=== PATIENT | female | born 1990 | race Two or more races ===

== ENCOUNTER → 2017-08-15 | Emergency (ER) | payer OTHER ==
[~2017-08-15] VITALS: Ht 162.6 cm; Wt 81.6 kg
[~2017-08-15] MED LIST: AUGMENTIN 875-1 EAC1 ORAL; ZYRTEC-D TABLE1 EACH ORAL
[2017-08-15 13:55] VITALS: BP 131/80
--- NOTE | 2017-08-15 14:25 | Emergency Room Report ---
History of Present Illness General Chief Complaint: Earache Source: Patient Present Illness HPI Patient presents with a report of right ear pain for the past one month Patient reports that this morning she felt something moving She has had worsening headache And migraine secondary to this pain Denies any vomiting denies any neck pain or photophobia Denies any focal weakness Upon further discussion the patient reports that she has also seen an hearing care practitioner And was told that there was no problems Pain is 5/10 localized to the right ear Allergies: Coded Allergies: No Known Allergies (Unverified , 08/15/17) Patient History Past Medical History: see triage record Pertinent Family History: none Last Menstrual Period: Current Now: No Reviewed Nursing Documentation: PMH: Agreed, PSxH: Agreed Nursing Documentation-PMH Past Medical History: No Stated History Review of Systems All Other Systems: negative except mentioned in HPI Physical Exam Vital Signs Date Time Temp Pulse Resp B/P (MAP) Pulse Ox O2 Delivery O2 Flow Rate FiO2 08/15/17 13:55 98.6 77 16 131/80 98 Room Air Sp02 EP Interpretation: reviewed, normal General Appearance: well appearing, no apparent distress Head: normocephalic, atraumatic Eyes: bilateral eye PERRL, bilateral eye EOMI ENT: normal pharynx, other - To exam reveals a full tympanic membrane, there is a mild whitish marking on the edge, no obvious foreign body in the canal, no obvious perforation however the area does appear abnormal, Neck: supple, other - mastoid is soft Musculoskeletal: normal inspection Neurologic: normal inspection, alert, oriented x3 Skin: normal color, no rash Lymphatic: no adenopathy Medical Decision Making Diagnostic Impression: Primary Impression: Earache, right Additional Impression: Middle ear effusion ER Course Given the patient's exam I did discuss with her some differentials I do not think that there is any central process at this time Patient requested lavage of the ear At this time I did notify her that this causes severe nausea vomiting Has not been performed in the ER Patient was upset regarding this She is requesting to be let go if not markedly anything else I tried to reiterate to her the importance of her specialty followup Second opinion is extremely important as I feel that there is some abnormality Also involving possible effusion that is persisting Which the etiology is to be further evaluated Otherwise there are no further emergency room procedures are identified again patient continues not to be happy regarding my findings And is discharged in stable condition with recommendations of urgent ENT followup, Last Vital Signs Date Time Temp Pulse Resp B/P (MAP) Pulse Ox O2 Delivery O2 Flow Rate FiO2 08/15/17 13:55 98.6 77 16 131/80 98 Room Air Status: unchanged Disposition: HOME, SELF-CARE Condition: Stable Scripts Cetirizine Hcl/Pseudoephedrine (ZYRTEC-D TABLET) 1 Each Tab.er.12h 1 EACH ORAL DAILY, #12 TAB Prov: ALISA RAMIREZ D.O. 08/15/17 Amoxicillin/Potassium Clav 875-125* (AUGMENTIN 875-125 TABLET*) 1 Each Tablet 1 TAB ORAL TWICE A DAY, #14 TAB Prov: ALISA RAMIREZ D.O. 08/15/17 Departure Forms: Return to Work Return to Work in (Days): 1 Return to Work Date: Aug 16, 2017 Patient Instructions: Otitis Media With Effusion, Earache Additional Instructions: Please note that there is an abnormality identified in the right ear. You have mention that this has been ongoing for approximately one month. He have also mentioned that he has seen an hearing care practitioner. It is felt that an hearing care practitioner would be the appropriate referral for this. And possibly a second opinion is warranted if you're not happy with the first specialist recommendations or findings. ALISA RAMIREZ D.O. Aug 15, 2017 14:25
== END | disposition home or self-care (01) ==
LOC: EMR 13:59
DX: H92.01 Otalgia, right ear (principal); H74.8X1 Other specified disorders of right middle ear and mastoid
CPT/HCPCS: 99283

== ENCOUNTER 2018-09-21 22:30 | Emergency (ER) | payer OTHER ==
[~2018-09-21] VITALS: Ht 162.6 cm; Wt 81.6 kg
[2018-09-21] MEDS ORDERED: NKM (23:08)
--- NOTE | 2018-09-21 23:15 | NUR ---
ED Nurse Note: RECIEVED PT ON CHAIR, FROM HOME, C/O SORETHROAT FOR PAST 2 DAYS, PAIN AT 10/10, DENIES FEVERS, NAUSEA, VOMITING OR ANY OTHER DISTRESS.
[2018-09-21] MEDS ORDERED: IBUPROFEN600 MG ORAL (23:57)
--- NOTE | 2018-09-21 23:57 | Emergency Room Report ---
History of Present Illness General Chief Complaint: Flu Like Symptoms Source: Patient Present Illness HPI This is a 27-year-old female with no past medical history. She presents with chief complaint of flulike illness and sore throat. Onset for last 3 days. No nausea no vomiting. Has fever and chills. Slight cough. With slight headache. But most the pain as sore throat. She started amoxicillin this morning. Pain is 8 out of 10. Worse with swallowing. Allergies: Coded Allergies: No Known Allergies (Unverified , 08/15/17) Patient History Past Medical History: see triage record, old chart reviewed Past Surgical History: none Pertinent Family History: none Social History: Denies: smoking Last Menstrual Period: 09/13/2018 Now: No : 1 Para: 1 Immunizations: other Reviewed Nursing Documentation: PMH: Agreed; PSxH: Agreed Nursing Documentation-PMH Past Medical History: No History, Except For Review of Systems Constitutional: Reports: fever Eye: Denies: eye pain, blurred vision ENT: Reports: nose congestion, throat pain, throat swelling; Denies: ear pain Respiratory: Reports: cough; Denies: shortness of breath Cardiovascular: Denies: chest pain, palpitations Gastrointestinal: Denies: abdominal pain, diarrhea, nausea, vomiting Musculoskeletal: Denies: back pain, joint pain Skin: Denies: rash Neurological: Denies: headache, numbness Endocrine: Denies: increased thirst, increased urine Hematologic/Lymphatic: Denies: easy bruising All Other Systems: negative except mentioned in HPI Physical Exam Vital Signs Date Time Temp Pulse Resp B/P (MAP) Pulse Ox O2 Delivery O2 Flow Rate FiO2 09/21/18 23:03 97.7 70 16 106/74 96 Room Air vitals normal Sp02 EP Interpretation: reviewed, normal General Appearance: well appearing, no apparent distress, alert Head: normocephalic, atraumatic Eyes: bilateral eye PERRL, bilateral eye EOMI ENT: hearing grossly normal, tonsillar swelling, pharyngeal erythema Neck: full range of motion, supple, no meningismus Respiratory: chest non-tender, lungs clear, normal breath sounds Cardiovascular #1: regular rate, rhythm, no murmur Gastrointestinal: normal bowel sounds, non tender, no mass, no organomegaly, no bruit, non-distended Musculoskeletal: back normal, gait/station normal, normal range of motion Psychiatric: mood/affect normal Skin: warm/dry Medical Decision Making Diagnostic Impression: Primary Impression: Acute tonsillitis Qualified Codes: J03.90 - Acute tonsillitis, unspecified Additional Impression: Influenza-like symptoms ER Course Patient with flulike illness. Most likely viral in nature. She does have enlarged tonsil. This again most likely viral or strep throat. She's already started amoxicillin. We'll treat symptomatically. She is outside the window for Tamiflu. She looks well. No evidence of meningitis, sepsis, pneumonia, or other serious bacterial infection. Last Vital Signs Date Time Temp Pulse Resp B/P (MAP) Pulse Ox O2 Delivery O2 Flow Rate FiO2 09/21/18 23:03 97.7 70 16 106/74 96 Room Air Status: improved Disposition: HOME, SELF-CARE Condition: Stable Scripts Ibuprofen* (MOTRIN*) 600 Mg Tablet 600 MG ORAL Q8H PRN for For Pain, #30 TAB 0 Refills Prov: Chung Littlejohn MD 09/21/18 Additional Instructions: Increase fluids. Salt water gargle. Follow-up with your doctor in 7 days. Return if worse. Chung Littlejohn MD Sep 21, 2018 23:57
[2018-09-22] VITALS: BP 106/74
== END 2018-09-22 | disposition home or self-care (01) ==
LOC: EMR 22:55
DX: J03.90 Acute tonsillitis, unspecified (principal); J11.1 Influenza due to unidentified influenza virus with other respiratory manifestations
CPT/HCPCS: 99282

== ENCOUNTER 2019-02-08 22:30 | Emergency (ER) | payer OTHER ==
[~2019-02-08] VITALS: Ht 162.6 cm; Wt 83.9 kg
[~2019-02-08 22:30] MED LIST changes: +IBUPROFEN600 MG ORAL; +NKM
--- NOTE | 2019-02-08 22:40 | NUR ---
ED Nurse Note: pt walked in c/o increase in vaginal bleeding and low abd pain, pt reports she is on her period right now but reports heavier bleeding than usual. pt also reports dizziness as well. pt AA&ox4, gcs=15, skin warm and dry, resp even and unlabored on RA, ambulates w/ steady gait, vss, will cont monitor.
--- NOTE | 2019-02-08 22:49 | NUR ---
ED Nurse Note: pt states she can't go to restroom at this time unable to provide urine specimen, will try again.
[2019-02-08 22:50] VITALS: BP 123/79
[2019-02-08] MEDS ORDERED: Ketorolac 60mg Inj IM ONE (23:00)
[2019-02-08] MEDS ORDERED: IBUPROFEN600 MG ORAL (23:53)
--- NOTE | 2019-02-09 00:02 | NUR ---
ED Nurse Note: PT CLEARED TO BE D/C PER ERMD, PT DISCHARGE AND AFTER CARE INSTRUCTION W/ PRESCRIPTION PROVIDED, PT EDUCATION DONE VIA DISCUSSION AND HANDOUT, PT ADVISED TO FOLLOW UP WITH PCP OR RETURN TO ED IF CHANGES IN CONDITION, VSS, AMBULATORY W/ STEADY GAIT. PT ACCOMPANIED BY BOYFRIEND, LEFT W/ ALL BELONGINGS.
[2019-02-09 00:03] VITALS: BP 121/79
--- NOTE | 2019-02-09 00:11 | Emergency Room Report ---
History of Present Illness General Chief Complaint: Vaginal Source: Patient Present Illness HPI Patient presents with complaints of continued vaginal bleeding Patient states that she started her menstrual cycle 6 days ago and that she feels that this menstrual cycle is heavier than her usual cycle Patient reports starting control pills earlier this month denies any chest pain denies any shortness of breath Denies any vomiting or diarrhea denies any presyncopal or syncopal episodes Allergies: Coded Allergies: No Known Allergies (Unverified , 02/08/19) Patient History Past Medical History: see triage record Pertinent Family History: none Last Menstrual Period: 02/08/19; pt currently on her cycle. Now: No : 1 Para: 1 Reviewed Nursing Documentation: PMH: Agreed; PSxH: Agreed Nursing Documentation-PMH Past Medical History: No Stated History Review of Systems All Other Systems: negative except mentioned in HPI Physical Exam Vital Signs Date Time Temp Pulse Resp B/P (MAP) Pulse Ox O2 Delivery O2 Flow Rate FiO2 02/08/19 22:34 98.1 76 18 123/79 (94) 97 Room Air Sp02 EP Interpretation: reviewed, normal General Appearance: well appearing, no apparent distress Head: normocephalic, atraumatic Eyes: bilateral eye PERRL, bilateral eye EOMI ENT: hearing grossly normal, normal pharynx, TMs + canals normal, uvula midline Neck: full range of motion, supple, no meningismus, no bony tend Respiratory: lungs clear, normal breath sounds, no rhonchi, no respiratory distress, no retraction, no accessory muscle use Cardiovascular #1: normal peripheral pulses, regular rate, rhythm, no edema, no gallop, no JVD, no murmur Gastrointestinal: normal bowel sounds, non tender, soft, no mass, no organomegaly, non-distended, no guarding, no hernia, no pulsatile mass, no rebound Genitourinary: no CVA tenderness Musculoskeletal: normal inspection Neurologic: oriented x3, responsive, groover and striper operator III-XII nml as tested, motor strength/ tone normal, sensory intact Psychiatric: mood/affect normal Skin: normal color, no rash, warm/dry, palpation normal Lymphatic: normal inspection, no adenopathy Medical Decision Making Diagnostic Impression: Primary Impression: abnormal vaginal bleeding ER Course With the patient's history and examination, multiple differentials considered, including but not limited to , ectopic , ovarian torsion, gastritis, cholecystitis, pancreatitis, appendicitis Patient had some minimal lower abdominal cramping test was obtained which was negative patient is hemodynamically stable I did not feel patient met emergency criteria for further imaging she will benefit from outpatient ultrasound if this continues Patient did better with acute intervention stable for close outpatient follow-up Labs Test 02/08/19 23:10 Human Chorionic Gonadotropin, Quant < 1 mIU/mL (1-6) Last Vital Signs Date Time Temp Pulse Resp B/P (MAP) Pulse Ox O2 Delivery O2 Flow Rate FiO2 02/09/19 00:03 98.1 70 18 121/79 97 Room Air Status: improved Disposition: HOME, SELF-CARE Condition: Improved Scripts Ibuprofen* (MOTRIN*) 600 Mg Tablet 600 MG ORAL Q8H PRN for For Pain, #20 TAB 0 Refills Prov: Bradley Chacon DO 02/08/19 Referrals: POLO CROSS,REFERRING (PCP) [facility] Patient Instructions: Abnormal Uterine Bleeding, [id number] Additional Instructions: Patient is provided with the discharge instructions notified to follow up with primary doctor in the next 2-3 days otherwise return to the er with any worsening symptoms. Please note that this report is being documented using [employer] technology. This can lead to erroneous entry secondary to incorrect interpretation by the dictating instrument. Bradley Chacon DO Feb 09, 2019 00:11
== END 2019-02-09 00:03 | disposition home or self-care (01) ==
LOC: EMR 22:43
DX: N93.9 Abnormal uterine and vaginal bleeding, unspecified (principal)
CPT/HCPCS: 36415; 84702; 96372; 99283

== ENCOUNTER 2019-05-06 10:10 | Emergency (ER) | payer SELFPAY ==
[~2019-05-06] VITALS: Ht 162.6 cm; Wt 67.1 kg
--- NOTE | 2019-05-06 10:30 | Emergency Room Report ---
History of Present Illness General Chief Complaint: Complications Source: Patient Present Illness HPI Patient presents with complaints of discomfort to the left lower abdominal area Also reports taking a test last Monday which was positive she has abnormal menstrual cycles And is not sure if she is actually or had a early menstrual cycle Denies any headache denies any chest pain denies any vomiting or diarrhea The discomfort at this time is significantly improved and reports that it was mainly left suprapubic region denies any dysuria frequency Allergies: Coded Allergies: No Known Allergies (Unverified , 02/08/19) Patient History Past Medical History: see triage record Last Menstrual Period: beginning of march Reviewed Nursing Documentation: PMH: Agreed; PSxH: Agreed Nursing Documentation-PMH Past Medical History: No Stated History Review of Systems All Other Systems: negative except mentioned in HPI Physical Exam Vital Signs Date Time Temp Pulse Resp B/P (MAP) Pulse Ox O2 Delivery O2 Flow Rate FiO2 05/06/19 10:13 98.4 76 22 125/80 (95) 96 Room Air Sp02 EP Interpretation: reviewed, normal General Appearance: well appearing, no apparent distress Head: normocephalic, atraumatic Eyes: bilateral eye PERRL, bilateral eye EOMI ENT: hearing grossly normal, normal pharynx, TMs + canals normal, uvula midline Neck: full range of motion, supple, no meningismus, no bony tend Respiratory: lungs clear, normal breath sounds, no rhonchi, no respiratory distress, no retraction, no accessory muscle use Cardiovascular #1: normal peripheral pulses, regular rate, rhythm, no edema, no gallop, no JVD, no murmur Gastrointestinal: normal bowel sounds, non tender, soft, no mass, no organomegaly, non-distended, no guarding, no hernia, no pulsatile mass, no rebound Genitourinary: no CVA tenderness Musculoskeletal: normal inspection Neurologic: oriented x3, responsive, tape stringer III-XII nml as tested, motor strength/ tone normal, sensory intact Psychiatric: mood/affect normal Skin: no rash Lymphatic: normal inspection, no adenopathy Medical Decision Making Diagnostic Impression: Primary Impression: Dysfunctional uterine bleeding Additional Impression: Ovarian cyst ER Course With the patient's history and examination, multiple differentials considered, including but not limited to , ectopic , ovarian torsion, gastritis, cholecystitis, pancreatitis, appendicitis Patient's test is negative Given some of her abnormal vaginal bleeding ultrasound was obtained for further information Labs Test 05/06/19 10:30 Urine Color Pale yellow Urine Appearance Clear Urine pH 6 (4.5-8.0) Urine Specific [place] 1.015 (1.005-1.035) Urine Protein 2+ (NEGATIVE) Urine Glucose (UA) Negative (NEGATIVE) Urine Ketones Negative (NEGATIVE) Urine Blood 5+ (NEGATIVE) Urine Nitrite Negative (NEGATIVE) Urine Bilirubin Negative (NEGATIVE) Urine Urobilinogen Normal MG/DL (0.0-1.0) Urine Leukocyte Esterase 1+ (NEGATIVE) Urine RBC 10-15 /HPF (0 - 2) Urine WBC 2-4 /HPF (0 - 2) Urine Squamous Epithelial Cells Occasional /LPF Urine Bacteria Few /HPF (NONE) Human Chorionic Gonadotropin, Quant 1 mIU/mL (1-6) CT/MRI/US Diagnostic Results CT/MRI/US Diagnostic Results : Impression Pelvic ultrasound: Left-sided follicular cyst small free fluid Last Vital Signs Date Time Temp Pulse Resp B/P (MAP) Pulse Ox O2 Delivery O2 Flow Rate FiO2 05/06/19 10:13 98.4 76 22 125/80 (95) 96 Room Air Status: improved Disposition: HOME, SELF-CARE Condition: Improved Scripts Ibuprofen* (MOTRIN*) 600 Mg Tablet 600 MG ORAL Q8H PRN for For Pain, #20 TAB 0 Refills Prov: Bradley Chacon DO 05/06/19 Additional Instructions: Patient is provided with the discharge instructions notified to follow up with primary doctor in the next 2-3 days otherwise return to the er with any worsening symptoms. Please note that this report is being documented using [id number] technology. This can lead to erroneous entry secondary to incorrect interpretation by the dictating instrument. Bradley Chacon DO May 06, 2019 10:30
--- NOTE | 2019-05-06 10:31 | NUR ---
ED Nurse Note: Pt came in from home due to L sided abdominal cramping pain and spotting x last night, heavy bleeding started this morning. Pt did a home test and result was POSITIVE 1 week ago. Pain 9/10 paul. AOx4, VSS at this time. Will cont to monitor.
[2019-05-06 10:46] LABS: APPEARANCE,URINE CLEAR; BILIRUBIN, URINE NEGATIVE (NEGATIVE); COLOR,URINE PALE YELLOW; GLUCOSE, URINE (UA) NEGATIVE (NEGATIVE); KETONES,URINE NEGATIVE (NEGATIVE); LEUKOCYTE ESTERASE ,URINE 1+ (NEGATIVE); NITRITE,URINE NEGATIVE (NEGATIVE); PH,URINE 6 (4.5-8.0); PROTEIN,URINE 2+ (NEGATIVE); UROBILINOGEN,URINE NORMAL MG/DL (0.0-1.0)
--- NOTE | 2019-05-06 10:49 | NUR ---
ED Nurse Note: Pt down to US for imaging via gurney.
[2019-05-06 12:19] VITALS: BP 119/82
--- NOTE | 2019-05-06 12:19 | NUR ---
ER DISCHARGE NOTE: Patient is cleared to be discharged per ERMD, pt is aox4, on room air, with stable vital signs. pt was given dc and prescription instructions, pt was able to verbalize understanding, pt id band removed. pt is able to ambulate with steady gait. pt took all belongings. Addendum: 05/06/19 at 1221 by [facility]U ER DISCHARGE NOTE: Patient is cleared to be discharged per ERMD, pt is aox4, on room air, with stable vital signs. pt was given dc instructions, pt was able to verbalize understanding, pt id band removed. pt is able to ambulate with steady gait. pt took all belongings.
[2019-05-06] MEDS ORDERED: IBUPROFEN600 MG ORAL (12:21)
--- NOTE | 2019-05-06 13:38 | Diagnostic Imaging Report ---
Indication:Lower abdominal and pelvic pain. test negative. Heavy vaginal bleeding Technique: Grayscale and duplex Doppler imaging of the pelvis performed utilizing a transabdominal and endovaginal scan. Comparison: None Findings: The size, contour, and configuration of the uterus is within normal limits. The endometrium is uniformly echogenic and normal in thickness. Endometrium measures 5 mm. The ovaries appear normal bilaterally with good dopplerable blood flow. There is no significant free fluid identified. There is a dominant simple left ovarian cyst measuring about 2 cm. IMPRESSION: Negative pelvic ultrasound. No acute findings.
== END 2019-05-06 12:19 | disposition home or self-care (01) ==
LOC: EMR 10:54
DX: N83.202 Unspecified ovarian cyst, left side (principal); N93.8 Other specified abnormal uterine and vaginal bleeding
CPT/HCPCS: 36415; 76856; 81003; 84702; 86900; 86901; 99284

== ENCOUNTER 2020-02-03 13:04 | Emergency (ER) | payer OTHER ==
[~2020-02-03] VITALS: Ht 162.6 cm; Wt 90.7 kg
[2020-02-03] MEDS ORDERED: Cephalexin 500mg cap ORAL ONE (13:45)
[2020-02-03] MEDS ORDERED: DiphenhydrAMINE 25mg Tab ORAL ONE (13:45)
--- NOTE | 2020-02-03 13:49 | Emergency Room Report ---
History of Present Illness General Chief Complaint: Skin Rash/Abscess Source: Patient Present Illness HPI 29-year-old female with history contact dermatitis and different food allergy as well as allergies to peanuts here complaining of a burning rash periorbital that started right after eating peanuts last night. Complains of an itchy throat however denies any swelling or anaphylaxis. Denies any abdominal pain nausea vomiting, cough and congestion, shortness of breath. Also complains of feeling itchy all over. Reports that she used Cetaphil cream earlier and did not help. Reports that she has not been using any eye make-up ever since she started having different allergic reactions. Also her scalp is burning. No lesions noted on the scalp. Periorbital cellulitis noted. Secondary to contact dermatitis. Denies any burning sensation inside the conjunctive or any eye discharge. Denies using any cream or shampoo. Denies any pain at the site of periorbital rash. No lesions noted perioral. Has not taken medication for symptom relief. Appears to be stable with stable vital signs. Denies any fever and chills. Denies . Allergies: Coded Allergies: No Known Allergies (Unverified , 02/08/19) COVID-19 Screening Contact w/high risk pt: No Recent Travel to affected area: No Experienced COVID-19 symptoms?: No COVID-19 Testing performed VISUAL DISPLAY MANAGER: No Patient History Past Medical History: see triage record Past Surgical History: none Pertinent Family History: none Last Menstrual Period: ns Now: No Immunizations: UTD Reviewed Nursing Documentation: PMH: Agreed; PSxH: Agreed Nursing Documentation-PMH Past Medical History: No Stated History Review of Systems All Other Systems: negative except mentioned in HPI Physical Exam Vital Signs Date Time Temp Pulse Resp B/P (MAP) Pulse Ox O2 Delivery O2 Flow Rate FiO2 02/03/20 13:11 99.1 80 17 143/86 (105) 98 Room Air Sp02 EP Interpretation: reviewed, normal General Appearance: no apparent distress, alert, GCS 15, non-toxic Head: normocephalic, atraumatic Eyes: bilateral eye other - Periorbital contact dermatitis and cellulitis noted without involvement of the conjunctival and eyelids ENT: hearing grossly normal, normal pharynx, no angioedema, normal voice, other - No angioedema Neck: full range of motion, supple/symm/no masses Respiratory: chest non-tender, lungs clear, normal breath sounds, speaking full sentences Cardiovascular #1: normal inspection, no edema Gastrointestinal: normal bowel sounds, non tender, soft, non-distended, no guarding, no rebound Rectal: deferred Genitourinary: no CVA tenderness Musculoskeletal: back normal Neurologic: alert, motor strength/tone normal, oriented x3, sensory intact, responsive, speech normal Psychiatric: judgement/insight normal, memory normal, mood/affect normal, no suicidal/homicidal ideation Skin: other - Periorbital cellulitis secondary to contact dermatitis noted Lymphatic: no adenopathy Medical Decision Making PA Attestation All my diagnosis and treatment plans were reviewed ad discussed with my supervising physician Dr. Moses Diagnostic Impression: Primary Impression: Allergic reaction Additional Impression: Facial cellulitis ER Course 29-year-old female with history contact dermatitis and different food allergy as well as allergies to peanuts here complaining of a burning rash periorbital that started right after eating peanuts last night. Complains of an itchy throat however denies any swelling or anaphylaxis. Denies any abdominal pain nausea vomiting, cough and congestion, shortness of breath. Also complains of feeling itchy all over. Reports that she used Cetaphil cream earlier and did not help. Reports that she has not been using any eye make-up ever since she started having different allergic reactions. Also her scalp is burning. No lesions noted on the scalp. Periorbital cellulitis noted. Secondary to contact dermatitis. Denies any burning sensation inside the conjunctive or any eye discharge. Denies using any cream or shampoo. Denies any pain at the site of periorbital rash. No lesions noted perioral. Has not taken medication for symptom relief. Appears to be stable with stable vital signs. Denies any fever and chills. Denies .\ Ddx considered but are not limited to : Cellulitis, noninfected contact dermatitis, anaphylaxis, allergic reaction, superficial infection, abscess Vital signs: are WNL, pt. is afebrile H&PE are most consistent with: Facial cellulitis secondary to allergic reaction most likely due to contact dermatitis ORDERS: Prednisone, Keflex, Benadryl, Bactroban ointment ED INTERVENTIONS: First dose of Keflex and prednisone p.o. DISCHARGE: At this time pt. is stable for d/c to home. Will provide printed patient care instructions, and any necessary prescriptions. Care plan and follow up instructions have been discussed with the patient prior to discharge. Patient follow-up primary doctor for allergy testing referral to an sales solutions representative. If anaphylaxis, difficulty breathing or swallowing return to the emergency room. Avoid eating foods that patient has potential allergic reaction to. Avoid contact with hot water. If worsening symptoms return to the emergency room. Patient was evaluated in the context of the global COVID-19 pandemic, which necessitated consideration that the patient might be at risk for infection with the SARS-COV-2 virus that causes COVID-19. Institutional protocols and algorithms that pertain to the evaluation of patients at risk for COVID-19 are in a state of rapid change based on information relieved by multiple regulatory bodies including the CDC and the federal and state organizations. These policies and algorithms were followed during the patient's care in the ED. Last Vital Signs Date Time Temp Pulse Resp B/P (MAP) Pulse Ox O2 Delivery O2 Flow Rate FiO2 02/03/20 13:11 99.1 80 17 143/86 (105) 98 Room Air Disposition: HOME, SELF-CARE Condition: Stable Scripts Mupirocin* (MUPIROCIN*) 22 Gm Oint...g. 1 APPLIC TOPIC THREE TIMES A DAY, #22 GM Prov: David Poon 02/03/20 Diphenhydramine Hcl* (BENADRYL*) 25 Mg Capsule 25 MG ORAL Q6H PRN for Itching, #20 CAP Prov: David Poon 02/03/20 Prednisone* (PREDNISONE*) 20 Mg Tablet 40 MG ORAL DAILY for 5 Days, #10 TAB Prov: David Poon 02/03/20 Cephalexin* (KEFLEX*) 500 Mg Capsule 500 MG ORAL EVERY 6 HOURS for 7 Days, #28 CAP Prov: David Poon 02/03/20 Patient Instructions: Allergies, Qauq-[id number]-Itom, Cellulitis, [id number] Additional Instructions: Take medication as directed, follow-up with your primary doctor for allergy testing, if anaphylaxis, difficulty breathing or swallowing return to the emergency room. David Poon Feb 03, 2020 13:49
[2020-02-03] MEDS ORDERED: PREDNISONE20 MG ORAL (13:50)
[2020-02-03] MEDS ORDERED: BENADRYL25 MG ORAL (13:50)
[2020-02-03] MEDS ORDERED: CEPHALEXIN500 MG ORAL (13:50)
[2020-02-03] MEDS ORDERED: MUPIROCIN22 GM TOPIC (13:50)
--- NOTE | 2020-02-03 14:00 | NUR ---
ED Nurse Note: Pt cleared by health care Provider for discharge. DC instructions/prescription was given and explained to pt and verbalized understanding of teachings. All medical deviecs such as ID band removed. Pt is AAO x4, ambulatory and left with all personal belongings.
[2020-02-03 14:29] VITALS: BP 143/86
== END 2020-02-03 14:00 | disposition home or self-care (01) ==
LOC: EMR 13:38
DX: T78.40XA Allergy, unspecified, initial encounter (principal); X58.XXXA Exposure to other specified factors, initial encounter; L03.211 Cellulitis of face; Z91.010 Allergy to peanuts; L25.9 Unspecified contact dermatitis, unspecified cause
CPT/HCPCS: 99282; J7512